=== PATIENT | female | born 1950 | race Two or more races ===

== ENCOUNTER → 2023-06-30 09:28 | Outpatient (REF) | payer OTHER, SELFPAY | LOC: WDC 09:28 | PROVIDERS: ATTENDING PHYSICIAN Surgery | DX: C50.411 Malignant neoplasm of upper-outer quadrant of right female breast (principal) | CPT/HCPCS: 19281; A4648 ==

== ENCOUNTER 2023-07-01 06:39 | Day surgery (SDC) | payer OTHER, SELFPAY ==
[2023-06-27 07:38] VITALS: BMI 34.0
[2023-06-27 08:42] LABS: Hematocrit 38.9 % (37.0-47.0); Mean Corp Hgb Conc. 33.4 g/dL (33.0-37.0); Mean Corpuscular Volume 89.6 fL (81.0-99.0); Mean Platelet Volume 11.7 fL (7.4-10.4); Platelet Count 211 10^3/uL (130-400); Red Blood Cell Count 4.34 10^6/uL (4.20-5.40); Red Cell Dist. Width 12.8 % (11.5-14.5); White Blood Cell Count 6.2 10^3/uL (4.8-10.8)
[2023-06-27 09:08] LABS: ALT (SGPT) 28 U/L (0-35); AST (SGOT) 21 U/L (14-36); Albumin 3.9 g/dl (3.5-5.0); Alkaline Phosphatase 81 U/L (38-126); Blood Urea Nitrogen 12 mg/dl (7-17); Calcium 9.5 mg/dl (8.4-10.2); Carbon Dioxide 30 mmol/L (22-30); Chloride 99 mmol/L (98-107); Estimated Creatinine Clearance 57 ml/min; Glucose 89 mg/dl (70-99); Potassium 4.3 mmol/L (3.5-5.1); Sodium 137 mmol/L (135-145); Total Bilirubin 0.5 mg/dl (0.2-1.3); Total Protein 6.7 g/dl (6.3-8.2); eGFR > 60.00
[2023-06-27 09:15] LABS: Prealbumin (Transthyretin) 22.5 mg/dl (17.6-36.0)
[2023-06-27 09:30] LABS: Vitamin D, 25-OH*** 33.4 ng/mL (30-80)
[2023-07-01 06:52] VITALS: BMI 34.0
[2023-07-01 06:54] VITALS: BP 150/80
[2023-07-01] MEDS: TYLENOL 1000 MG PO (07:08)
[2023-07-01] MEDS: NORMOSOL-R 1000 IV (07:08)
[2023-07-01] MEDS: TRANSDERM-SCOP 1 PATCH TRANSDERM (07:25)
[2023-07-01 08:55] VITALS: BP 92/49
[2023-07-01 09:00] VITALS: BP 105/60
[2023-07-01 09:15] VITALS: BP 111/59
[2023-07-01 09:30] VITALS: BP 123/64
== END 2023-07-01 10:15 | disposition home or self-care (01) ==
LOC: SDS 06:39
PROVIDERS: ATTENDING PHYSICIAN Surgery; FAMILY PHYSICIAN Internal Medicine; OTHER PHYSICIAN Internal Medicine Cardiovascular Disease
DX: D05.11 Intraductal carcinoma in situ of right breast (principal); Z17.0 Estrogen receptor positive status [ER+]
CPT/HCPCS: 19301; 14001; 88305; 88307; 36415; 76098; 80053; 82306; 84134; 85027; 88342; 88360; 93005; A4648

== ENCOUNTER → 2024-06-02 12:35 | Outpatient (REF) | payer OTHER, SELFPAY | LOC: WDC 12:35 | PROVIDERS: ATTENDING PHYSICIAN Surgery; FAMILY PHYSICIAN Internal Medicine | DX: Z12.31 Encounter for screening mammogram for malignant neoplasm of breast (principal) | CPT/HCPCS: 77063; 77067 ==

== ENCOUNTER → 2025-05-27 13:05 | Outpatient (REF) | payer OTHER, SELFPAY | LOC: WDC 13:05 | PROVIDERS: ATTENDING PHYSICIAN Family Medicine Geriatric Medicine; FAMILY PHYSICIAN Internal Medicine | DX: N64.4 Mastodynia (principal) | CPT/HCPCS: 76642 ==